=== PATIENT | male | born 1965 | race Caucasian/White ===

== ENCOUNTER 2020-07-21 09:46 | Emergency (ER) | payer MEDICAID ==
[~2020-07-21] VITALS: Ht 185.4 cm; Wt 102.3 kg
[~2020-07-21 09:46] MED LIST: METH-360 PO; NO HOME MEDS
[2020-07-21 10:43] LABS: BASOPHILS # (AUTO) 0.1 X10'3 (0-0.2); BASOPHILS % (AUTO) 0.8 % (0-1); EOSINOPHILS # (AUTO) 0.9 X10'3 (0-0.9); EOSINOPHILS % (AUTO) 7.9 % (0-6); HEMATOCRIT 45.6 % (42.0-52.0); LYMPHOCYTES # (AUTO) 1.8 X10'3 (1.1-4.8); LYMPHOCYTES % (AUTO) 16.8 % (21-51); MEAN CORPUSCULAR HEMOGLOBIN 26.7 PG (27.0-31.0); MEAN CORPUSCULAR VOLUME 80.9 FL (78-98); MEAN PLATELET VOLUME 7.4 FL (7.4-10.4); MONOCYTES # (AUTO) 1.3 X10'3 (0-0.9); MONOCYTES % (AUTO) 11.8 % (2-12); NEUTROPHILS # (AUTO) 6.8 X10'3 (1.8-7.7); NEUTROPHILS % (AUTO) 62.7 % (42-75); PLATELET COUNT 353 X10'3 (140-440); RED BLOOD COUNT 5.64 X10'6 (4.70-6.10); RED CELL DISTRIBUTION WIDTH 15.5 % (11.5-14.5); WHITE BLOOD COUNT 10.9 X10'3 (4.5-11.0)
[2020-07-21 10:52] LABS: ALANINE AMINOTRANSFERASE 28 U/L (12-78); ALBUMIN 3.3 G/DL (3.4-5.0); ALBUMIN/GLOBULIN RATIO 0.7 (1.1-1.5); ALKALINE PHOSPHATASE 207 IU/L (46-116); AMYLASE 48 U/L (25-115); ANION GAP 12 (8-16); ASPARTATE AMINO TRANSFERASE 18 U/L (10-37); BILIRUBIN,TOTAL 0.2 MG/DL (0.1-1.0); BLOOD UREA NITROGEN 20 MG/DL (7-18); BUN/CREATININE RATIO 22.7 (5.4-32.0); CALCIUM 9.1 MG/DL (8.5-10.1); CHLORIDE 105 MMOL/L (99-107); CREATININE 0.88 MG/DL (0.60-1.10); GLUCOSE 109 MG/DL (70-104); LIPASE 104 U/L (73-393); POTASSIUM 3.8 MMOL/L (3.5-5.1); SODIUM 142 MMOL/L (135-145); TOTAL CARBON DIOXIDE 24.7 MMOL/L (24-32); TOTAL PROTEIN 8.3 G/DL (6.4-8.2); eGFR > 90 ML/MIN
[2020-07-21] MEDS ORDERED: normal saline 1000ML IV soln IVB ONE ×2 (11:00)
[2020-07-21] MEDS ORDERED: pantoprazole 40 MG vial IV ONE (11:00)
[2020-07-21] MEDS ORDERED: ondansetron/PF 4mg/2ml inj IV ONE (11:00)
[2020-07-21 11:34] LABS: CLARITY,URINE CLEAR (Clear); COLOR,URINE YELLOW (Yellow); GLUCOSE, URINE NEGATIVE (Neg); KETONES,URINE NEGATIVE (Neg); LEUKOCYTE ESTERASE ,URINE NEGATIVE (Neg); NITRITES, URINE NEGATIVE (Neg); OCCULT BLOOD,URINE MODERATE (Neg); PH,URINE 5.5 (4.8-8.0); PROTEIN,URINE NEGATIVE (Neg); UROBILINOGEN,URINE 0.2 E.U/dL (0.2-1.0)
[2020-07-21 11:39] LABS: UA COLLECTION TYPE URINAL
[2020-07-21 11:40] LABS: BACTERIA,URINE NONE SEEN /HPF (Neg); HYALINE CASTS 0-3 /LPF (NEGATIVE); MUCUS STRANDS FEW /LPF (Neg); RBC,URINE 0-2 /HPF (0-2); SQUAMOUS EPITHELIAL CELL,UR NONE SEEN /LPF (FEW); WBC,URINE 0-4 /HPF (0-4)
[2020-07-21 11:47] LABS: URINE AMPHETAMINE SCREEN POSITIVE (Neg); URINE BARBITUATE SCREEN NEGATIVE (Neg); URINE BENZODIAZEPINES SCREEN NEGATIVE (Neg); URINE CANNABINOID SCREEN POSITIVE (Neg); URINE COCAINE SCREEN NEGATIVE (Neg); URINE METHADONE SCREEN NEGATIVE (Neg); URINE OPIATE SCREEN NEGATIVE (Neg); URINE PHENCYCLIDINE SCREEN NEGATIVE (Neg)
--- NOTE | 2020-07-21 13:33 | NUR ---
INFORMED DR CHARLTON THAT PATIENT TOLERATED PO FLUIDS WELL: 240 ML TOTAL. MD WILL PUT DISCHARGE PAPERS UP
[2020-07-21] MEDS ORDERED: ONDA8TAB13 PO (13:37)
[2020-07-21] MEDS ORDERED: PANT-47 PO (13:37)
--- NOTE | 2020-07-21 13:40 | NUR ---
DR CHARLTON INFORMED OF LARGE REDDENED GOLF BALL SIZED PROTRUSION FROM RIGHT FOREARM
[2020-07-21] MEDS ORDERED: LIDOcaine 1% W/epiNEPHrine 1:200,000 10ml vial IJ ONE (13:50)
[2020-07-21] MEDS ORDERED: SULF1TAB49 PO (13:51)
--- NOTE | 2020-07-21 14:06 | NUR ---
DR CHARLTON INFORMED RTHAT ALL SUPPLIES NEEDED FOR ABCESS DRAINAGE ARE IN THE ROOM
[2020-07-21 14:53] VITALS: BP 144/88
== END 2020-07-21 15:00 | disposition home or self-care (01) ==
LOC: ER 09:47
DX: L02.413 Cutaneous abscess of right upper limb (principal); R10.13 Epigastric pain; R11.0 Nausea; F15.90 Other stimulant use, unspecified, uncomplicated; Z98.890 Other specified postprocedural states; Z79.899 Other long term (current) drug therapy
CPT/HCPCS: 10160; 36415; 71045; 80053; 80305; 81001; 82150; 82948; 83690; 85025; 87070; 87077; 87185; 96361; 96374; 96375; 99285; C9113; J2405; J7030; 10060

== ENCOUNTER 2023-04-11 12:59 | Inpatient (IN) | payer MEDICAID ==
[~2023-04-11] VITALS: Ht 185.4 cm; Wt 101.2 kg
[~2023-04-11 12:59] MED LIST changes: +ONDA8TAB13 PO; +PANT-47 PO
[2023-04-11] MEDS ORDERED: CefTRIAXone 2gm/D5W 50ml BAG 50 ML IV ONE (13:10)
[2023-04-11] MEDS ORDERED: vancomycin/NS 1 GM ADD-VANTAGE 250 ML IV ONE (13:10)
[2023-04-11] MEDS ORDERED: normal saline 1000ML IV soln IV ONE (13:10)
[2023-04-11 15:33] LABS: BASOPHILS # (AUTO) 0.1 X10'3 (0-0.2); BASOPHILS % (AUTO) 0.4 % (0-1); EOSINOPHILS # (AUTO) 0.4 X10'3 (0-0.9); EOSINOPHILS % (AUTO) 1.5 % (0-6); HEMATOCRIT 49.2 % (42.0-52.0); HEMOGLOBIN 16.1 g/dl (14.0-17.9); LYMPHOCYTES # (AUTO) 2.1 X10'3 (1.1-4.8); LYMPHOCYTES % (AUTO) 8.2 % (21-51); MEAN CORPUSCULAR HEMOGLOBIN 26.8 PG (27.0-31.0); MEAN CORPUSCULAR HGB CONC 32.8 g/dL (33.0-36.5); MEAN CORPUSCULAR VOLUME 81.8 FL (78-98); MEAN PLATELET VOLUME 7.8 FL (7.4-10.4); MONOCYTES # (AUTO) 3.3 X10'3 (0-0.9); MONOCYTES % (AUTO) 12.9 % (2-12); NEUTROPHILS # (AUTO) 19.4 X10'3 (1.8-7.7); PLATELET COUNT 450 X10'3 (140-440); RED BLOOD COUNT 6.02 X10'6 (4.70-6.10); RED CELL DISTRIBUTION WIDTH 15.5 % (11.5-14.5)
[2023-04-11 15:37] LABS: WHITE BLOOD COUNT 25.2 X10'3 (4.5-11.0)
[2023-04-11 15:45] LABS: ALANINE AMINOTRANSFERASE 25 U/L (12-78); ALBUMIN 2.9 G/DL (3.4-5.0); ALBUMIN/GLOBULIN RATIO 0.5 (1.1-1.5); ALKALINE PHOSPHATASE 139 IU/L (46-116); ANION GAP 13 (8-16); ASPARTATE AMINO TRANSFERASE 36 U/L (10-37); BILIRUBIN,TOTAL 0.2 MG/DL (0.1-1.0); BLOOD UREA NITROGEN 21 MG/DL (7-18); BUN/CREATININE RATIO 12.8 (10.0-20.0); CALCIUM 8.7 MG/DL (8.5-10.1); CHLORIDE 98 MMOL/L (99-107); CREATININE 1.64 MG/DL (0.60-1.10); GLUCOSE 124 MG/DL (70-104); POTASSIUM 4.1 MMOL/L (3.5-5.1); SODIUM 132 MMOL/L (135-145); TOTAL CARBON DIOXIDE 20.9 MMOL/L (24-32); TOTAL PROTEIN 8.4 G/DL (6.4-8.2); eCRCL 57 ML/MIN; eGFR 44 ML/MIN
[2023-04-11] MEDS ORDERED: iohexol 300mg/ml 100ml inj. ONE (15:49)
[2023-04-11 16:05] LABS: PLATELET ESTIMATE INCREASED; TOTAL CELLS COUNTED 100
[2023-04-11 16:06] LABS: BURR CELLS FEW; ELLIPTOCYTES FEW
[2023-04-11] MEDS: normal saline 1000ml 1,000 ML IV SCH (17:00)
[2023-04-11] MEDS ORDERED: ondansetron/PF 4mg/2ml inj IV PRN (17:00)
[2023-04-11] MEDS ORDERED: magnesium Cl slow-release 64mg tablet PO PRN (17:00)
[2023-04-11] MEDS ORDERED: magnesium 4gm in 100ml NS 100 ML IV PRN (17:00)
[2023-04-11] MEDS ORDERED: potassium Cl 40MEQ/1/2NS 520ml 520 ML IV PRN (17:00)
[2023-04-11] MEDS ORDERED: mag hydrox/Alum hydrox/simeth 30ml oral suspension PO PRN (17:00)
[2023-04-11] MEDS ORDERED: magnesium 2GM in 50ml NS 50 ML IV PRN (17:00)
[2023-04-11] MEDS ORDERED: magnesium hydroxide 30ml (MOM) UD suspension PO PRN (17:00)
[2023-04-11] MEDS ORDERED: potassium Cl 20 mEq SR tablet PO PRN ×2 (17:00)
[2023-04-11] MEDS ORDERED: vancomycin/NS 1 GM ADD-VANTAGE 250 ML IV SCH ×2 (17:10→17:21)
[2023-04-11] MEDS: nicotine 21mg patch - 24 hr TD SCH (17:25)
[2023-04-11 17:30] LABS: HEMOGLOBIN A1C 6.2 % (4.5-6.2)
[2023-04-11 17:34] LABS: LACTATE DEHYDROGENASE 538 U/L (85-227)
[2023-04-11 17:52] LABS: CREATINE KINASE MB 6.7 ng/ml (0.3-3.6)
[2023-04-11 18:40] LABS: BILIRUBIN,URINE NEGATIVE (Neg); CLARITY,URINE SLIGHTLY CLOUDY (Clear); COLOR,URINE YELLOW (Yellow); GLUCOSE, URINE NEGATIVE (Neg); KETONES,URINE NEGATIVE (Neg); LEUKOCYTE ESTERASE ,URINE NEGATIVE (Neg); NITRITES, URINE NEGATIVE (Neg); OCCULT BLOOD,URINE SMALL (Neg); PROTEIN,URINE NEGATIVE (Neg); UROBILINOGEN,URINE 0.2 E.U/dL (0.2-1.0)
[2023-04-11 18:41] LABS: UA COLLECTION TYPE CLN CATCH MIDSTREAM
[2023-04-11] MEDS: piperacillin/tazo 3.375gm/50ml 50 ML IV SCH (19:56)
[2023-04-11] MEDS: docusate sod 100mg capsule PO SCH (20:00)
[2023-04-11] MEDS: K and/or MAG REPLACEMENT MC SCH (20:01)
[2023-04-11] MEDS: heparin, porcine 5000 units/ml vial SQ SCH (20:56)
[2023-04-11] MEDS ORDERED: ibuprofen tablet 400 MG TABLET PO ONE (21:35)
[2023-04-11] MEDS: HYDROcodone/acetaminophen 10/325mg tab PO PRN (21:52)
[2023-04-11 23:35] LABS: CELLULAR CAST 0-4 /LPF (NEGATIVE); HYALINE CASTS 0-3 /LPF (NEGATIVE)
[2023-04-11 23:39] LABS: BACTERIA,URINE FEW /HPF (Neg); RBC,URINE 0-2 /HPF (0-2)
[2023-04-11 23:40] LABS: MUCUS STRANDS FEW /LPF (Neg); SQUAMOUS EPITHELIAL CELL,UR NONE SEEN /LPF (FEW)
[2023-04-12] VITALS (16 sets, daily range): BP systolic 120–154; BP diastolic 58–87; PULSE 66–95; RESP 12–21; TEMP 97.8–99.2; O2SAT 95–99
[2023-04-12] MEDS ORDERED: vancomycin/NS 1 GM ADD-VANTAGE 250 ML IV SCH (01:00)
[2023-04-12] MEDS: morphine 2 MG/ML inj. syringe IV PRN ×3 (01:31→10:56)
[2023-04-12] MEDS: HYDROcodone/acetaminophen 10/325mg tab PO PRN ×3 (03:41→19:51)
[2023-04-12] MEDS: HYDROcodone/acetaminophen 5mg/325mg tablet PO PRN (06:44)
[2023-04-12] MEDS: normal saline 1000ml 1,000 ML IV SCH ×2 (06:49→16:45)
[2023-04-12] MEDS: docusate sod 100mg capsule PO SCH ×2 (07:48→19:50)
[2023-04-12] MEDS: K and/or MAG REPLACEMENT MC SCH ×2 (07:49→20:00)
[2023-04-12] MEDS: nicotine 21mg patch - 24 hr TD SCH (07:54)
[2023-04-12] MEDS: heparin, porcine 5000 units/ml vial SQ SCH ×2 (08:00→19:50)
[2023-04-12] MEDS: piperacillin/tazo 3.375gm/50ml 50 ML IV SCH ×3 (08:24→16:45)
[2023-04-12] MEDS ORDERED: ondansetron/PF 4mg/2ml inj IV PRN (13:15)
[2023-04-12] MEDS ORDERED: meperidine/PF 25mg/ml syringe IV PRN ×3 (13:15)
[2023-04-12] MEDS ORDERED: ringers solution, lacted 1,000 ML IV SCH (13:15)
[2023-04-12] MEDS ORDERED: proCHLORperazine 10 MG/2 ml inj IV PRN (13:15)
[2023-04-12] MEDS ORDERED: morphine 4 MG/ML inj SYRINge IV PRN (13:15)
[2023-04-12] MEDS ORDERED: morphine 2 MG/ML inj. syringe IV PRN (13:15)
[2023-04-12] MEDS ORDERED: sevoflurane 250ml liquid IH ONE (13:19)
[2023-04-12] MEDS ORDERED: fentaNYL/PF 50MCG/1 ML 2ML syringe ONE (13:24)
[2023-04-12] MEDS ORDERED: midazolam 1 mg/ML 2ml injection ONE (13:25)
[2023-04-12] MEDS ORDERED: propofol inj 20 ML IV ONE (13:27)
[2023-04-12] MEDS ORDERED: BUPIVAcaine 2.5mg/ml inj 50ml vial (contains preservative) ONE (13:56)
[2023-04-12] MEDS ORDERED: BUPIVAcaine 2.5mg/ml inj 50ml vial (contains preservative) SQ ONE (13:58)
[2023-04-12 16:32] LABS: BASOPHILS # (AUTO) 0.1 X10'3 (0-0.2); BASOPHILS % (AUTO) 0.3 % (0-1); EOSINOPHILS # (AUTO) 0.2 X10'3 (0-0.9); EOSINOPHILS % (AUTO) 0.6 % (0-6); HEMATOCRIT 45.5 % (42.0-52.0); HEMOGLOBIN 14.8 g/dl (14.0-17.9); LYMPHOCYTES # (AUTO) 1.5 X10'3 (1.1-4.8); LYMPHOCYTES % (AUTO) 6.1 % (21-51); MEAN CORPUSCULAR HEMOGLOBIN 26.9 PG (27.0-31.0); MEAN CORPUSCULAR HGB CONC 32.5 g/dL (33.0-36.5); MEAN CORPUSCULAR VOLUME 82.8 FL (78-98); MEAN PLATELET VOLUME 8.2 FL (7.4-10.4); MONOCYTES # (AUTO) 2.2 X10'3 (0-0.9); NEUTROPHILS # (AUTO) 20.1 X10'3 (1.8-7.7); PLATELET COUNT 375 X10'3 (140-440); RED CELL DISTRIBUTION WIDTH 15.7 % (11.5-14.5); WHITE BLOOD COUNT 23.9 X10'3 (4.5-11.0)
[2023-04-12 16:46] LABS: ALANINE AMINOTRANSFERASE 39 U/L (12-78); ALBUMIN 2.3 G/DL (3.4-5.0); ALBUMIN/GLOBULIN RATIO 0.5 (1.1-1.5); ALKALINE PHOSPHATASE 128 IU/L (46-116); ANION GAP 10 (8-16); ASPARTATE AMINO TRANSFERASE 89 U/L (10-37); BILIRUBIN,TOTAL 0.3 MG/DL (0.1-1.0); BLOOD UREA NITROGEN 20 MG/DL (7-18); BUN/CREATININE RATIO 18.5 (10.0-20.0); CALCIUM 8.3 MG/DL (8.5-10.1); CHLORIDE 99 MMOL/L (99-107); CHOL/HDL RATIO 9.9 (0.00-4.99); CHOLESTEROL 148 MG/DL (0-200); CREATININE 1.08 MG/DL (0.60-1.10); GLUCOSE 146 MG/DL (70-104); HDL CHOLESTEROL 15 MG/DL (35-60); LDL CHOLESTEROL 97 MG/DL (50-100); MAGNESIUM 2.1 MG/DL (1.5-2.4); PHOSPHORUS 3.9 MG/DL (2.3-4.5); POTASSIUM 4.3 MMOL/L (3.5-5.1); SODIUM 132 MMOL/L (135-145); TOTAL CARBON DIOXIDE 22.6 MMOL/L (24-32); TRIGLYCERIDES 195 MG/DL (20-135); eCRCL 86 ML/MIN; eGFR 71 ML/MIN
[2023-04-12 17:19] LABS: URINE AMPHETAMINE SCREEN NEGATIVE (Neg); URINE BARBITUATE SCREEN NEGATIVE (Neg); URINE BENZODIAZEPINES SCREEN POSITIVE (Neg); URINE CANNABINOID SCREEN POSITIVE (Neg); URINE COCAINE SCREEN NEGATIVE (Neg); URINE METHADONE SCREEN NEGATIVE (Neg); URINE OPIATE SCREEN POSITIVE (Neg); URINE PHENCYCLIDINE SCREEN NEGATIVE (Neg)
[2023-04-12] MEDS: vancomycin/NS 1 GM ADD-VANTAGE 250 ML IV SCH (23:00)
[2023-04-13] MEDS: HYDROcodone/acetaminophen 10/325mg tab PO PRN ×2 (00:04→05:02)
[2023-04-13] MEDS: piperacillin/tazo 3.375gm/50ml 50 ML IV SCH ×3 (01:28→15:45)
[2023-04-13] MEDS: normal saline 1000ml 1,000 ML IV SCH ×3 (02:54→22:54)
[2023-04-13 07:00] VITALS: BP 137/78; PULSE 95; RESP 19; TEMP 97.8; O2SAT 98
[2023-04-13] MEDS: vancomycin/NS 1 GM ADD-VANTAGE 250 ML IV SCH ×2 (07:37→21:20)
[2023-04-13] MEDS: docusate sod 100mg capsule PO SCH ×2 (07:59→19:31)
[2023-04-13] MEDS: heparin, porcine 5000 units/ml vial SQ SCH ×2 (07:59→19:30)
[2023-04-13] MEDS: K and/or MAG REPLACEMENT MC SCH ×2 (08:00→20:00)
[2023-04-13] MEDS: nicotine 21mg patch - 24 hr TD SCH (08:01)
[2023-04-13 11:00] VITALS: BP 112/73; PULSE 84; RESP 20; TEMP 98; O2SAT 98
[2023-04-13] MEDS: acetaminophen 325mg tablet PO PRN ×3 (13:20→23:19)
[2023-04-13 15:00] VITALS: BP 150/75; PULSE 91; RESP 18; TEMP 97.9; O2SAT 95
[2023-04-13 18:00] VITALS: BP 137/85; PULSE 82; RESP 20; TEMP 98.6; O2SAT 96
[2023-04-13 20:00] VITALS: RESP 20; O2SAT 96
[2023-04-13 22:00] VITALS: BP 114/68; PULSE 92; RESP 18; TEMP 101.6; O2SAT 94
[2023-04-14] VITALS (8 sets, daily range): BP systolic 106–140; BP diastolic 67–99; PULSE 84–105; RESP 18–22; TEMP 97.3–100.1; O2SAT 95–98
[2023-04-14] MEDS: piperacillin/tazo 3.375gm/50ml 50 ML IV SCH ×3 (01:48→16:00)
[2023-04-14] MEDS: HYDROcodone/acetaminophen 10/325mg tab PO PRN ×4 (02:47→19:19)
[2023-04-14] MEDS ORDERED: VANCOMYCIN LEVEL IV ONE (07:30)
[2023-04-14 07:59] LABS: BASOPHILS # (AUTO) 0.1 X10'3 (0-0.2); BASOPHILS % (AUTO) 0.5 % (0-1); EOSINOPHILS # (AUTO) 0.2 X10'3 (0-0.9); HEMOGLOBIN 14.8 g/dl (14.0-17.9); LYMPHOCYTES # (AUTO) 2.3 X10'3 (1.1-4.8); LYMPHOCYTES % (AUTO) 9.6 % (21-51); MEAN CORPUSCULAR HEMOGLOBIN 26.8 PG (27.0-31.0); MEAN CORPUSCULAR HGB CONC 32.8 g/dL (33.0-36.5); MEAN CORPUSCULAR VOLUME 81.7 FL (78-98); MEAN PLATELET VOLUME 7.9 FL (7.4-10.4); MONOCYTES # (AUTO) 3.5 X10'3 (0-0.9); MONOCYTES % (AUTO) 14.5 % (2-12); NEUTROPHILS # (AUTO) 17.8 X10'3 (1.8-7.7); NEUTROPHILS % (AUTO) 74.4 % (42-75); PLATELET COUNT 397 X10'3 (140-440); RED BLOOD COUNT 5.51 X10'6 (4.70-6.10); RED CELL DISTRIBUTION WIDTH 15.6 % (11.5-14.5); WHITE BLOOD COUNT 23.9 X10'3 (4.5-11.0)
[2023-04-14] MEDS: K and/or MAG REPLACEMENT MC SCH ×2 (08:00→20:00)
[2023-04-14] MEDS: docusate sod 100mg capsule PO SCH ×2 (08:00→19:22)
[2023-04-14] MEDS: heparin, porcine 5000 units/ml vial SQ SCH ×2 (08:11→19:22)
[2023-04-14] MEDS: nicotine 21mg patch - 24 hr TD SCH (08:11)
[2023-04-14 08:16] LABS: ALANINE AMINOTRANSFERASE 48 U/L (12-78); ALBUMIN 1.7 G/DL (3.4-5.0); ALBUMIN/GLOBULIN RATIO 0.4 (1.1-1.5); ALKALINE PHOSPHATASE 106 IU/L (46-116); ANION GAP 8 (8-16); ASPARTATE AMINO TRANSFERASE 97 U/L (10-37); BILIRUBIN,TOTAL 0.4 MG/DL (0.1-1.0); BLOOD UREA NITROGEN 17 MG/DL (7-18); BUN/CREATININE RATIO 17.9 (10.0-20.0); CALCIUM 8.1 MG/DL (8.5-10.1); CHLORIDE 98 MMOL/L (99-107); CREATININE 0.95 MG/DL (0.60-1.10); GLUCOSE 120 MG/DL (70-104); MAGNESIUM 2.2 MG/DL (1.5-2.4); PHOSPHORUS 3.6 MG/DL (2.3-4.5); POTASSIUM 4.5 MMOL/L (3.5-5.1); SODIUM 130 MMOL/L (135-145); TOTAL CARBON DIOXIDE 24.2 MMOL/L (24-32); TOTAL PROTEIN 6.1 G/DL (6.4-8.2); eCRCL 98 ML/MIN; eGFR 82 ML/MIN
[2023-04-14] MEDS ORDERED: VANCOMYCIN 1,500MG in NS 300ml IVPB IV SCH (09:00)
[2023-04-14] MEDS: normal saline 1000ml 1,000 ML IV SCH ×2 (09:23→18:54)
[2023-04-14] MEDS: VANCOMYCIN 1,500MG in NS 300ml IVPB IV SCH ×2 (13:43→23:22)
[2023-04-14] MEDS ORDERED: diphenhydrAMINE 25mg capsule PO PRN (21:25)
[2023-04-14] MEDS: HYDROcodone/acetaminophen 5mg/325mg tablet PO PRN (23:35)
[2023-04-15] VITALS (7 sets, daily range): BP systolic 105–168; BP diastolic 54–119; PULSE 88–101; RESP 14–20; TEMP 97.7–101.2; O2SAT 93–98
[2023-04-15] MEDS: piperacillin/tazo 3.375gm/50ml 50 ML IV SCH (01:55)
[2023-04-15] MEDS: HYDROcodone/acetaminophen 10/325mg tab PO PRN ×3 (03:49→20:17)
[2023-04-15] MEDS ORDERED: ibuprofen tablet 400 MG TABLET PO ONE (04:20)
[2023-04-15] MEDS: normal saline 1000ml 1,000 ML IV SCH ×2 (04:54→14:54)
[2023-04-15] MEDS: K and/or MAG REPLACEMENT MC SCH ×2 (08:00→23:53)
[2023-04-15 08:40] LABS: BASOPHILS # (AUTO) 0.1 X10'3 (0-0.2); BASOPHILS % (AUTO) 0.5 % (0-1); EOSINOPHILS # (AUTO) 0.4 X10'3 (0-0.9); EOSINOPHILS % (AUTO) 2.3 % (0-6); HEMATOCRIT 43.8 % (42.0-52.0); HEMOGLOBIN 14.4 g/dl (14.0-17.9); LYMPHOCYTES # (AUTO) 2.3 X10'3 (1.1-4.8); LYMPHOCYTES % (AUTO) 12.2 % (21-51); MEAN CORPUSCULAR HEMOGLOBIN 26.9 PG (27.0-31.0); MEAN CORPUSCULAR HGB CONC 32.8 g/dL (33.0-36.5); MEAN CORPUSCULAR VOLUME 81.9 FL (78-98); MEAN PLATELET VOLUME 7.6 FL (7.4-10.4); MONOCYTES # (AUTO) 2.7 X10'3 (0-0.9); MONOCYTES % (AUTO) 14.6 % (2-12); NEUTROPHILS # (AUTO) 13.2 X10'3 (1.8-7.7); NEUTROPHILS % (AUTO) 70.4 % (42-75); PLATELET COUNT 417 X10'3 (140-440); RED BLOOD COUNT 5.35 X10'6 (4.70-6.10); RED CELL DISTRIBUTION WIDTH 15.5 % (11.5-14.5); WHITE BLOOD COUNT 18.8 X10'3 (4.5-11.0)
[2023-04-15] MEDS: nicotine 21mg patch - 24 hr TD SCH (08:45)
[2023-04-15] MEDS: heparin, porcine 5000 units/ml vial SQ SCH ×2 (08:45→20:18)
[2023-04-15] MEDS: docusate sod 100mg capsule PO SCH ×2 (08:46→20:00)
[2023-04-15] MEDS: levoFLOXACIN 750MG TABLET PO SCH (11:25)
[2023-04-15] MEDS: VANCOMYCIN 1,500MG in NS 300ml IVPB IV SCH ×2 (11:31→23:00)
[2023-04-15 11:34] LABS: ALANINE AMINOTRANSFERASE 53 U/L (12-78); ALBUMIN 1.5 G/DL (3.4-5.0); ALBUMIN/GLOBULIN RATIO 0.5 (1.1-1.5); ALKALINE PHOSPHATASE 84 IU/L (46-116); ANION GAP 6 (8-16); BILIRUBIN,TOTAL 0.2 MG/DL (0.1-1.0); BLOOD UREA NITROGEN 15 MG/DL (7-18); BUN/CREATININE RATIO 17.9 (10.0-20.0); CALCIUM 7.1 MG/DL (8.5-10.1); CHLORIDE 102 MMOL/L (99-107); CREATININE 0.84 MG/DL (0.60-1.10); GLUCOSE 93 MG/DL (70-104); MAGNESIUM 2.1 MG/DL (1.5-2.4); PHOSPHORUS 4.1 MG/DL (2.3-4.5); POTASSIUM 4.4 MMOL/L (3.5-5.1); SODIUM 134 MMOL/L (135-145); TOTAL CARBON DIOXIDE 26.2 MMOL/L (24-32); TOTAL PROTEIN 4.7 G/DL (6.4-8.2); eCRCL 111 ML/MIN; eGFR > 90 ML/MIN
[2023-04-15 11:51] LABS: ASPARTATE AMINO TRANSFERASE 77 U/L (10-37)
[2023-04-15 12:14] LABS: APTT 27 SECONDS (22-32); PROTHROMBIN TIME 9.8 SECONDS (9.0-12.0)
[2023-04-15 12:17] LABS: INR 0.9 INR
[2023-04-15 12:27] LABS: TOTAL CELLS COUNTED 100
[2023-04-15 12:28] LABS: LARGE PLATELETS FEW; PLATELET ESTIMATE NORMAL; SMUDGE CELLS FEW
[2023-04-15 15:10] LABS: HBSAG SCREEN Negative (Negative); HEP A AB, IGM Negative (Negative); HEPATITIS C VIRUS ANTIBODY Reactive (Non Reactive)
[2023-04-15] MEDS: guaiFENesin ER 600mg tablet PO SCH (15:20)
[2023-04-15] MEDS ORDERED: VANCOMYCIN LEVEL IV ONE (22:30)
[2023-04-16] MEDS: HYDROcodone/acetaminophen 10/325mg tab PO PRN ×4 (00:07→14:36)
[2023-04-16 02:00] VITALS: BP 91/67; PULSE 85; RESP 18; TEMP 97.5; O2SAT 98
[2023-04-16] MEDS: guaiFENesin ER 600mg tablet PO SCH ×2 (05:01→08:01)
[2023-04-16 06:00] VITALS: BP 130/69; PULSE 80; RESP 18; TEMP 98.4; O2SAT 95
[2023-04-16 06:12] LABS: ALANINE AMINOTRANSFERASE 68 U/L (12-78); ALBUMIN 1.5 G/DL (3.4-5.0); ALBUMIN/GLOBULIN RATIO 0.4 (1.1-1.5); ALKALINE PHOSPHATASE 88 IU/L (46-116); ANION GAP 7 (8-16); ASPARTATE AMINO TRANSFERASE 84 U/L (10-37); BILIRUBIN,TOTAL 0.2 MG/DL (0.1-1.0); BLOOD UREA NITROGEN 15 MG/DL (7-18); BUN/CREATININE RATIO 17.4 (10.0-20.0); CALCIUM 7.7 MG/DL (8.5-10.1); CHLORIDE 97 MMOL/L (99-107); CREATININE 0.86 MG/DL (0.60-1.10); GLUCOSE 173 MG/DL (70-104); MAGNESIUM 2.1 MG/DL (1.5-2.4); PHOSPHORUS 3.5 MG/DL (2.3-4.5); POTASSIUM 3.7 MMOL/L (3.5-5.1); SODIUM 131 MMOL/L (135-145); TOTAL PROTEIN 5.5 G/DL (6.4-8.2); eCRCL 108 ML/MIN; eGFR > 90 ML/MIN
[2023-04-16 06:14] LABS: BASOPHILS # (AUTO) 0.1 X10'3 (0-0.2); BASOPHILS % (AUTO) 0.6 % (0-1); EOSINOPHILS # (AUTO) 0.4 X10'3 (0-0.9); EOSINOPHILS % (AUTO) 2.5 % (0-6); HEMATOCRIT 40.2 % (42.0-52.0); LYMPHOCYTES # (AUTO) 1.8 X10'3 (1.1-4.8); LYMPHOCYTES % (AUTO) 11.4 % (21-51); MEAN CORPUSCULAR HEMOGLOBIN 26.5 PG (27.0-31.0); MEAN CORPUSCULAR HGB CONC 32.4 g/dL (33.0-36.5); MEAN CORPUSCULAR VOLUME 81.8 FL (78-98); MONOCYTES # (AUTO) 2.3 X10'3 (0-0.9); MONOCYTES % (AUTO) 14.8 % (2-12); NEUTROPHILS % (AUTO) 70.7 % (42-75); PLATELET COUNT 408 X10'3 (140-440); RED BLOOD COUNT 4.91 X10'6 (4.70-6.10); RED CELL DISTRIBUTION WIDTH 15.3 % (11.5-14.5); WHITE BLOOD COUNT 15.5 X10'3 (4.5-11.0)
[2023-04-16] MEDS: docusate sod 100mg capsule PO SCH (07:59)
[2023-04-16 08:00] VITALS: RESP 18; O2SAT 95
[2023-04-16] MEDS: K and/or MAG REPLACEMENT MC SCH (08:00)
[2023-04-16] MEDS: heparin, porcine 5000 units/ml vial SQ SCH (08:01)
[2023-04-16] MEDS: nicotine 21mg patch - 24 hr TD SCH (08:01)
[2023-04-16] MEDS ORDERED: LINE600T14 PO (09:34)
[2023-04-16] MEDS ORDERED: LEVO750T68 PO (09:34)
[2023-04-16] MEDS ORDERED: GUAI600T45 PO (09:34)
[2023-04-16] MEDS ORDERED: HYDR-3965 PO (09:37)
[2023-04-16 11:00] VITALS: BP 127/68; PULSE 86; RESP 16; TEMP 98.7; O2SAT 98
[2023-04-16] MEDS: levoFLOXACIN 750MG TABLET PO SCH (11:00)
[2023-04-16 15:00] VITALS: BP 111/62; PULSE 67; RESP 17; TEMP 98; O2SAT 96
[2023-04-16] MEDS ORDERED: vancomycin/NS 1 GM ADD-VANTAGE 250 ML IV SCH (15:00)
[2023-04-18] MEDS ORDERED: VANCOMYCIN LEVEL IV ONE (02:30)
== END 2023-04-16 18:26 | disposition home health service (06) | DRG 364 ==
LOC: ER 12:59 → ED HOLD 17:02 → PCU 3S 04-12 15:07
PROVIDERS: ADMIT Internal Medicine; ATTEND Internal Medicine
PROC: 0JDD0ZZ Extraction of Right Upper Arm Subcutaneous Tissue and Fascia, Open Approach (ICD-10-PCS; principal; 2023-04-12 13:19)
PROC: 05HC33Z Insertion of Infusion Device into Left Basilic Vein, Percutaneous Approach (ICD-10-PCS; 2023-04-14)
PROC: B54NZZA Ultrasonography of Left Upper Extremity Veins, Guidance (ICD-10-PCS; 2023-04-14)
DX: L03.113 Cellulitis of right upper limb (principal); N17.0 Acute kidney failure with tubular necrosis; M72.6 Necrotizing fasciitis; A41.9 Sepsis, unspecified organism; B97.4 Respiratory syncytial virus as the cause of diseases classified elsewhere; E87.1 Hypo-osmolality and hyponatremia; I80.8 Phlebitis and thrombophlebitis of other sites; N05.9 Unspecified nephritic syndrome with unspecified morphologic changes; F15.10 Other stimulant abuse, uncomplicated; E86.0 Dehydration; B18.2 Chronic viral hepatitis C; Z20.822 Contact with and (suspected) exposure to COVID-19; D75.839 Thrombocytosis, unspecified; N18.9 Chronic kidney disease, unspecified; E87.8 Other disorders of electrolyte and fluid balance, not elsewhere classified; R77.1 Abnormality of globulin; F17.210 Nicotine dependence, cigarettes, uncomplicated; L02.413 Cutaneous abscess of right upper limb; Z59.00 Homelessness unspecified; Z79.899 Other long term (current) drug therapy; Z88.2 Allergy status to sulfonamides; Z71.6 Tobacco abuse counseling
CPT/HCPCS: 36410; 36415; 71045; 73080; 73201; 76937; 80053; 80061; 80202; 80305; 81001; 82553; 83036; 83605; 83615; 83735; 84100; 84145; 84156; 85007; 85025; 85610; 85730; 86709; 86803; 87040; 87070; 87075; 87081; 87088; 87340; 87502; 87503; 87522; 87634; 87811; 92508; 92616; 93005; 93308; 93971; 99285; A4314; A4618; A6253; A6258; A6449; A7000; C1751; G0378; J0696; J1644; J2175; J2250; J2270; J2543; J2704; J3010; J3370; J3490; J7030; J7040; J7120; Q0163; Q9967

== ENCOUNTER 2023-04-17 08:55 | Emergency (ER) | payer MEDICAID ==
[~2023-04-17] VITALS: Ht 185.4 cm; Wt 107.7 kg
[~2023-04-17 08:55] MED LIST changes: +GUAI600T45 PO; +HYDR-3965 PO; +LEVO750T68 PO; +LINE600T14 PO
[2023-04-17] MEDS ORDERED: TETanus/Pertussis (Acell)/Diphther VAC/PF (Tdap-Adult) 0.5ml syringe IMVAC ONE (09:30)
[2023-04-17 10:43] VITALS: BP 123/77; PULSE 70; RESP 17; TEMP 98.3; O2SAT 98
== END 2023-04-17 10:50 | disposition home or self-care (01) ==
LOC: ER 08:57
DX: S61.210A Laceration without foreign body of right index finger without damage to nail, initial encounter (principal); F15.90 Other stimulant use, unspecified, uncomplicated; Z88.2 Allergy status to sulfonamides; X58.XXXA Exposure to other specified factors, initial encounter; Y93.89 Activity, other specified; Y92.89 Other specified places as the place of occurrence of the external cause; Y99.8 Other external cause status
CPT/HCPCS: 12002; 90471; 90715; 99284; A6258; A6449

== ENCOUNTER 2023-05-04 13:40 | Outpatient (CLI) | payer MEDICAID | END 2023-05-04 23:59 | disposition home or self-care (01) | LOC: RAD 13:40 | PROVIDERS: ATTEND Nurse Practitioner Family | DX: S41.101D Unspecified open wound of right upper arm, subsequent encounter (principal); L03.113 Cellulitis of right upper limb; L02.413 Cutaneous abscess of right upper limb; X58.XXXD Exposure to other specified factors, subsequent encounter | CPT/HCPCS: 76881 ==

== ENCOUNTER → 2023-06-19 | Outpatient (CLI) | payer MEDICAID ==
[~2023-06-19] MED LIST changes: -HYDR-3965 PO
== END | disposition home or self-care (01) ==
LOC: RAD 15:28
PROVIDERS: ATTEND Student in an Organized Health Care Education/Training Program
DX: R05.9 Cough, unspecified (principal)
CPT/HCPCS: 71046